=== PATIENT | female | born 1975 | race Caucasian/White ===

== ENCOUNTER 2024-06-20 22:54 | Emergency (ER) | payer OTHER, MEDICAID ==
[~2024-06-20] VITALS: Ht 167.6 cm; Wt 110.0 kg
[2024-06-20 22:55] VITALS: TEMP 98.7; O2SAT 97
[2024-06-20] MEDS ORDERED: LORAZEPAM 2MG/ML INJ IV ONE (23:30)
[2024-06-21 00:25] LABS: BASOPHILS % 0.5 % (0.0-2.0); HEMOGLOBIN. 12.8 g/dL (12.0-16.0); LYMPHOCYTES % 22.8 % (20.0-50.0); MEAN CORPUSCULAR HEMOGLOBIN 30.6 pg (28.0-32.0); MEAN CORPUSCULAR HGB CONC 34.7 g/dL (31.0-37.0); MEAN PLATELET VOLUME 6.9 fl (7.4-10.4); MONOCYTES % 8.5 % (2.0-8.0); NEUTROPHILS % 67.2 % (40.0-76.0); PLATELET 324 x1000/uL (130-400); RED CELL DISTRIBUTION WIDTH 14.6 % (11.6-14.6); WHITE BLOOD COUNT 5.5 x1000/uL (4.5-11.0)
[2024-06-21] MEDS: ACETAMINOPHEN 500MG TABLET PO ONE (00:29)
[2024-06-21] MEDS: LEVETIRACETAM 500MG PREMIX 100 ML IV ONE (00:30)
[2024-06-21 00:36] LABS: CHLORIDE 111 mEq/L (98-107); POTASSIUM 3.8 mEq/L (3.5-5.1); SODIUM 140 mEq/L (136-145)
[2024-06-21 00:37] LABS: CARBON DIOXIDE 21 mEq/L (21-32)
[2024-06-21 00:42] LABS: CREATININE 0.8 mg/dL (0.6-1.0); GLUCOSE 95 mg/dL (70-105); UREA NITROGEN BLOOD 14 mg/dL (9-23)
[2024-06-21 04:30] VITALS: BP 93/55; PULSE 71; RESP 15; O2SAT 96
== END 2024-06-21 04:50 | disposition home or self-care (01) ==
LOC: ER 22:54
DX: G40.909 Epilepsy, unspecified, not intractable, without status epilepticus (principal); Z79.899 Other long term (current) drug therapy
CPT/HCPCS: 36415; 99285; 80048; 85025; 96365; Z7610 ×3; J1953